=== PATIENT | male | born 1950 | race Caucasian/White ===

== ENCOUNTER → 2024-10-11 | Outpatient (CLI) | payer OTHER ==
--- NOTE | 2024-10-11 15:09 | HMCIMG ---
CT HEART SAVER PROMOTIONAL HISTORY: Cardiac calcification scoring. FINDINGS: The cardiac calcification scoring is 74.3. LM = 1.9, LAD = 47.7, and RCA = 14.7. Limited examination of the heart was performed. The study is done for additional or incidental findings. IMPRESSION: Incompletely imaged subcentimeter calcified granuloma within the anterior right lower lobe. No other additional findings.
== END | disposition home or self-care (01) ==
LOC: RAH 14:37
PROVIDERS: ATTEND Internal Medicine
DX: Z13.6 Encounter for screening for cardiovascular disorders (principal)
CPT/HCPCS: 75571